=== PATIENT | male | born 1960 | race Caucasian/White ===

== ENCOUNTER 2022-03-14 09:23 | Emergency (ER) | payer SELFPAY ==
[2022-03-14] MEDS ORDERED: Proparacaine 0.5% Opth 15 ML BOT ONE (09:29)
[2022-03-14] MEDS ORDERED: Fluorescein Opthalmic Strip ONE (09:29)
== END 2022-03-14 10:17 | disposition home or self-care (01) ==
LOC: ERS 09:23
DX: T15.11XA Foreign body in conjunctival sac, right eye, initial encounter (principal); F17.210 Nicotine dependence, cigarettes, uncomplicated; X58.XXXA Exposure to other specified factors, initial encounter
CPT/HCPCS: 65205

== ENCOUNTER 2022-10-11 08:33 | Emergency (ER) | payer SELFPAY ==
[2022-10-11] MEDS ORDERED: Fluorescein Opthalmic Strip ONE (09:45)
[2022-10-11] MEDS ORDERED: Proparacaine 0.5% Opth 15 ML BOT ONE (09:45)
== END 2022-10-11 10:50 | disposition home or self-care (01) ==
LOC: ERS 08:33
DX: S05.02XA Injury of conjunctiva and corneal abrasion without foreign body, left eye, initial encounter (principal); F17.210 Nicotine dependence, cigarettes, uncomplicated
CPT/HCPCS: 99283